=== PATIENT | male | born 1955 | race Caucasian/White ===

== ENCOUNTER 2016-04-26 13:20 | Inpatient (IN) | payer BC ==
--- NOTE | ~2016-04-26 | CN ---
Consultation Report [address] [place]. [address] NAME: RICK CARDONA : 57 STATUS : ADM IN PAT#: [id number] AGE: 60 ADM/REG DATE : 04/26/16 MR#: [id number] REPORT SERV DATE: 04/27/16 DICTATED BY: EDUAR SHANNON III DATE: 04/27/16 REPORT STATUS : Draft TRANSCRIBED BY: MODL DATE: 04/27/16 CONSULTATION DATE OF CONSULTATION: 04/27/2016 REASON FOR CONSULT: 1. Nausea and vomiting. 2. Small bowel obstruction. 3. Recommendation regarding surgical management. HISTORY OF PRESENT ILLNESS: I am asked to see this 60-year-old male, hospitalized for the above reasons. The patient complains of nausea, vomiting, and diffuse crampy abdominal pain. These symptoms began yesterday. These symptoms were associated with nausea and vomiting. The patient described diffuse nonlocalized abdominal pain. The patient presented to the emergency room initially at [facility] and was then transferred here. CT scan of the abdomen and pelvis there showed evidence for partial small bowel obstruction. The patient has a history of known metastatic prostate cancer with bone metastasis. He is currently undergoing chemotherapy. PAST MEDICAL HISTORY: 1. 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 2. Depression. 3. Cardiac arrhythmia. 4. Neuropathy of lower extremities. PAST SURGICAL HISTORY: Status post hemorrhoidectomy. ALLERGIES: NONE. MEDICATIONS: Adderall, aspirin, Lipitor, Casodex, Caltrate, Coreg, Klonopin, Colace, Prozac, oxycodone, prednisone, Seroquel, Flomax. The patient was initially diagnosed with prostate cancer in 2008. He apparently underwent surveillance before being found to have metastatic disease with imaging showing multiple metastasis including left ilium, right scapula, and spine. PHYSICAL EXAMINATION: Consultation Report [address] [place]. [address] NAME: RICK CARDONA : 57 STATUS : ADM IN PAT#: [id number] AGE: 60 ADM/REG DATE : 04/26/16 MR#: [id number] REPORT SERV DATE: 04/27/16 DICTATED BY: EDUAR SHANNON III DATE: 04/27/16 REPORT STATUS : Draft TRANSCRIBED BY: MODL DATE: 04/27/16 GENERAL: Male, in no acute distress. He is alert and oriented x3. VITAL SIGNS: Blood pressure 107/57, temperature 98.6, pulse 66. HEENT: Unremarkable. Cranial nerves 2 through 12 are normal. LUNGS: Clear. CARDIAC: Normal. ABDOMEN: Slightly distended, but soft and nontender. EXTREMITIES: Normal. LABORATORY DATA: CT scan of the abdomen and pelvis performed at [facility] reportedly showed a partial small bowel obstruction. This is not available for review at this time. The scan showed fluid distention in the majority of the small bowel without a focal transition point. There was noted to be some thickening of the distal ilium, 15 cm proximal to the ileocecal valve. There was noted to be fluid and stool in the colon. KUB here is normal. Electrolytes are unremarkable. Liver enzymes are normal. Current PSA from [facility] is 12. White blood cell count 3.4, platelet count 135,000. ASSESSMENT: 1. This is a 60-year-old male with nausea, vomiting, abdominal pain, probable partial small bowel obstruction. This seems to be resolving spontaneously. 2. History of prostate cancer with bone metastasis. 3. Cardiac arrhythmia. PLAN: The patient has been admitted and started on parenteral fluids and bowel rest. He seems to be improving already. I suspect this will be a self-limiting process with no surgical intervention being required. We will follow the patient with you. This plan has been explained to the patient. His questions have been answered. He understands and agrees to this as planned. RHJ/MODL Eduar Shannon III, M.D. / [id number] CC: Israel Ricketts MD
--- NOTE | ~2016-04-26 | HP ---
History And Physical [address] [place]. [address] NAME: RICK ACRDONA : 57 STATUS : ADM IN [facility]#: [id number] AGE: 60 ADM/REG DATE : 04/26/16 MR#: [id number] REPORT SERV DATE: 04/26/16 DICTATED BY: MIRLANDE BEAULIEU DATE: 04/26/16 REPORT STATUS : Draft TRANSCRIBED BY: MODOswald DATE: 04/26/16 DATE OF ADMISSION: 04/26/2016 CHIEF COMPLAINT: Abdominal pain, nausea, and vomiting. HISTORY OF PRESENT ILLNESS: This patient is a 60-year-old gentleman, who presented as a hospital transfer from [facility]. The patient presented via ambulance to [facility] Emergency Room with complaints of acute abdominal pain, nausea, and vomiting. The patient stated that the symptoms started approximately 8-10 hours prior to the admission. At the time of admission to the emergency room, the patient was rating pain 9/10. Did state that he was having periods of nausea and vomiting in every 20 minutes, unable to control. Did state that his abdomen was extremely tender to touch. This patient does present with a history of metastatic prostate cancer with bony metastasis, is under the care of Dr. Frantz Marin, [facility]. This patient denies shortness of breath, chest pain, and abdominal pain at this time. Does state that nausea is controlled. PAST MEDICAL HISTORY: 1. Metastatic prostate cancer with bony metastasis. 2. Depression. 3. Anxiety. 4. History of constipation. 5. Left bundle-branch block. 6. Neuropathy, bilateral lower extremities. 7. Brachytherapy 2011. PAST SURGICAL HISTORY: Hemorrhoidectomy. SOCIAL HISTORY: The patient is for over 37 years. One living son. No longer working. Continues to smoke. Occasional alcohol use. Denies illicit drug use. 1. Oncologist is Dr. Frantz Marin. 2. Primary care is Dr. Omari Christensen. 3. Palliative Care, Dr. Tahir Jain. 4. Radiation oncologist, Dr. Nate Medel. 5. Recruiting Manager is Dr. Csear Mojica. ALLERGIES: NO KNOWN DRUG ALLERGIES. HOME MEDICATIONS: 1. Adderall 10 mg one p.o. twice daily. 2. Aspirin 81 mg one p.o. daily. 3. Lipitor 40 mg one p.o. daily. 4. Casodex 50 mg one p.o. daily. 5. Caltrate 600 mg with vitamin D. History And Physical [address] [address] NAME: RICK CARDONA : 57 STATUS : ADM IN PAT#: [id number] AGE: 60 ADM/REG DATE : 04/26/16 MR#: [id number] REPORT SERV DATE: 04/26/16 DICTATED BY: MIRLANDE BEAULIEU DATE: 04/26/16 REPORT STATUS : Draft TRANSCRIBED BY: KINDRA DATE: 04/26/16 6. Coreg 3.125 p.o. twice daily. 7. Klonopin 3 mg at bedtime. 8. Colace 100 mg one p.o. twice daily. 9. Prozac 40 mg two tabs daily. 10.Oxycodone 7.5/325 one p.o. twice daily. 11.Prednisone 5 mg. 12.Seroquel at bedtime. 13. 200 mg p.o. at bedtime. 14.Flomax 0.4 mg one p.o. daily. PHYSICAL EXAMINATION: VITAL SIGNS: Temp 99.7, pulse is 99, respirations 18, blood pressure is 113/55. GENERAL: This patient is alert and oriented, in no acute distress. NECK: No JVD. LUNGS: Clear bilateral. No wheezes, rales, or rhonchi. CARDIOVASCULAR: Regular rate. No murmurs, rubs, or gallops. ABDOMEN: Soft, rounded. Bowel sounds are active. EXTREMITIES: No edema. No cyanosis. LABORATORY DATA: WBC is 7.3, hemoglobin 14.7, hematocrit 43.4, platelet count 203. Sodium is 139, potassium is 4.4, chloride is 98, CO2 is 31, calcium is 9.7, glucose is 145, BUN is 13, creatinine is 1.1, albumin is 4.3. Alkaline phosphatase is 101, ALT is 32, AST is 24, total bilirubin is 0.8, lipase is 4. IMAGING: CT of the abdomen and pelvis. IMPRESSION: Fluid distention of the majority of small bowel without focal transition point in the left lower quadrant. Distal ilium and focal area of irregular wall thickening, about 15 cm proximal to the ileocecal valve. Fluid and stool are seen throughout the length of the colon suggesting an incomplete or early small-bowel obstruction at this level. There is irregular wall thickening and could indicate adenocarcinoma of the small bowel, though a focal inflammatory process or sequel of prior insult could appear similar. ASSESSMENT AND PLAN: 1. Possible small-bowel obstruction. Imaging reviewed from [facility]. We will obtain a consult for Surgery to see. The patient will be placed n.p.o. with sips of clear liquids. 2. Nausea and vomiting due to possible small-bowel obstruction. The patient states that this is controlled at this time. We will provide antiemetics p.r.n. and IV fluids, and continue to monitor. 3. Above abdominal pain due to possible small-bowel obstruction. At this time, the patient does state the pain is controlled. We will add narcotics p.r.n. as needed for pain control. 4. Metastatic prostate cancer with known bone metastasis. The patient is followed by Dr. Frantz Marin. We will consult Oncology to follow during this hospital stay. 5. Chronic pain/neuropathy. The patient does present with a history of chronic pain and neuropathy. We will continue home medications. History And Physical [address] [address] NAME: RICK CARDONA : 57 STATUS : ADM IN [facility]#: [id number] AGE: 60 ADM/REG DATE : 04/26/16 MR#: [id number] REPORT SERV DATE: 04/26/16 DICTATED BY: MIRLANDE BEAULIEU DATE: 04/26/16 REPORT STATUS : Draft TRANSCRIBED BY: MODL DATE: 04/26/16 6. Code status. The patient is a full code. The patient will be followed by Dr. Israel Ricketts during his hospital stay. [facility] Mirlande Beaulieu NP / [id number] CC: MD Omari Pimentel, DO
--- NOTE | ~2016-04-26 | DS ---
Discharge Summary [address] [place]. [address] NAME: RICK CARDONA : 57 STATUS : DIS IN PAT#: [id number] AGE: 60 ADM/REG DATE : 04/26/16 MR#: [id number] REPORT SERV DATE: 04/30/16 DICTATED BY: DATE: REPORT STATUS : Draft TRANSCRIBED BY: MODL DATE: 04/29/16 ADMISSION DATE: 04/26/2016 DISCHARGE DATE: 04/29/2016 DISCHARGE DIAGNOSES: 1. Partial small-bowel obstruction, resolved. 2. Nausea with vomiting, resolved. 3. Abdominal pain, resolved. 4. Chronic pain/neuropathy. 5. Metastatic prostate cancer. 6. Depression. CONSULTATIONS: Dr. Eduar Shannon, Surgery, 04/27/2016. PERTINENT TEST AND PROCEDURES: 1. KUB, 04/26/2016, impression: Unremarkable gas pattern. No acute process. 2. KUB, 04/27/2016, impression: No significant bowel gas abnormalities. No evidence of free intraperitoneal air. No areas of significant mass effect. No evidence of acute abnormality within the abdomen. 3. Abdominal AP and upright imaging 04/28/2016, impression: Nonspecific bowel pattern which may represent mild ileus or enteritis. No evidence of significant obstruction currently. 4. Noncontrast CT of abdomen and pelvis, 04/26/2016 obtained at [facility] prior to admission, impression:. a. Fluid distention of majority of small bowel with focal transition point in the left lower quadrant distal ilium and a focal area of irregular wall thickening about 15 cm proximal to the ileocecal valve. Fluid/stool seen throughout the length of the colon suggesting incomplete or early small-bowel obstruction. Area of irregular wall thickening could indicate adenocarcinoma of small bowel versus focal inflammatory process or sequelae of prior insult. b. Small projection from the more proximal small bowel suggestive of a noninflamed Meckel's diverticulum. c. Diffuse sclerotic metastatic disease in the spine, pelvis, and proximal femur. d. Brachytherapy to the prostate consistent with history of prostate cancer. 5. Blood cultures x2 sites obtained, 04/26/2016, preliminary result, no growth at two days. 6. Urinalysis specimen obtained 04/26/2016, result negative. CHIEF COMPLAINT: Abdominal pain with nausea and vomiting. HOSPITAL COURSE: Refer to history and physical dated 04/26/2016 provided by Mone Beaulieu, nurse practitioner, for complete details pertaining to the patient's initial presentation upon admission and health history. Also, refer to consultation dated 04/27/[address] Eduar Shannon, Surgery. Discharge Summary [facility] [address] [place]. [address] NAME: RICK CARDONA : 57 STATUS : DIS IN PAT#: [id number] AGE: 60 ADM/REG DATE : 04/26/16 MR#: [id number] REPORT SERV DATE: 04/30/16 DICTATED BY: DATE: REPORT STATUS : Draft TRANSCRIBED BY: MODL DATE: 04/29/16 Briefly, the patient is a 60-year-old male, who presented to [facility] on 04/26/2016 with complaints of abdominal pain, nausea, and vomiting. Initial workup at [facility] included noncontrast CT of abdomen and pelvis which indicated possible small- bowel obstruction. The patient was transferred to [facility] for further evaluation and treatment. Dr. Eduar Shannon, Surgery, was consulted regarding recommendations for surgical management of possible small-bowel obstruction. Per Surgery, small-bowel obstruction appeared to be a self-limiting process with no surgical intervention being indicated. The patient responded well to bowel rest and IV fluids. 1. Partial small-bowel obstruction, resolved. Repeat KUB 04/28/2016, reported no evidence of obstruction with mild ileus versus enteritis pattern. Small-bowel obstruction, resolved spontaneously without indication for surgical intervention. GI signed off on the patient today and advised continuing soft diet and advancing as tolerated with followup in their office as needed. The patient has tolerated GI soft diet without difficulty and all symptoms to include intractable abdominal pain, nausea, and vomiting are completely resolved. 2. Nausea and vomiting. This was secondary to partial small bowel small bowel obstruction. Symptoms are now completely resolved. 3. Abdominal pain, acute. This was secondary to partial small-bowel obstruction. Abdominal pain has completely resolved, and the patient is successfully consuming oral intake without difficulty. 4. Chronic pain/neuropathy. This is secondary to metastatic prostate cancer. The patient will follow up with Dr. Jain, Pain Management, on 05/13/2016 at 10 o'clock for continued outpatient for management of pain medications. 5. Metastatic prostate cancer with multiple bone metastases. The patient is under the outpatient care of Dr. Frantz Marin at [facility]. The patient to follow up as scheduled. 6. Depression. The patient shows no clinical signs or symptoms of acute exacerbation of depression during this admission. Continue home medications. DISCHARGE CONDITION: At the time of discharge, the patient is hemodynamically stable. DISCHARGE DIET: GI soft diet to be advanced as tolerated at home. DISCHARGE MEDICATIONS: 1. Adderall 20 mg p.o. twice daily. 2. Casodex 50 mg tablet p.o. daily. 3. Coreg 3.125 mg tablet p.o. twice daily. 4. Fentanyl 25 mcg/hour transdermal patch, applied topically every 72 hours. 5. Prozac 40 mg tablet p.o. twice daily. 6. Habitrol 21 mg patch topically daily. The patient may obtain this over the counter if he wishes to pursue smoking cessation. 7. Seroquel 100 mg tablet, take 500 mg p.o. at bedtime. 8. Flomax 0.4 mg tablet p.o. daily. 9. Klonopin 1 mg tablet, take 3 mg p.o. at bedtime. Discharge Summary [address] [address] NAME: RICK CARDONA : 57 STATUS : DIS IN PAT#: [id number] AGE: 60 ADM/REG DATE : 04/26/16 MR#: [id number] REPORT SERV DATE: 04/30/16 DICTATED BY: DATE: REPORT STATUS : Draft TRANSCRIBED BY: KINDRA DATE: 04/29/16 10.Prednisone 5 mg tablet p.o. daily. 11.Lipitor 40 mg tablet p.o. daily. 12.Roxicodone 5 mg tablet, take 20 mg p.o. twice daily. Hold for sedation. 13.Aspirin 81 mg tablet p.o. daily. 14.Colace 100 mg tablet p.o. twice daily. 15.Caltrate 600+ D tab p.o. daily. 16.Console 1 dose p.o. daily. 17.Console 1 dose p.o. daily as needed in addition to scheduled dose. 18.Fbxm-ccf-inlaiqh probiotic one tablet p.o. three times daily. 19.[place]-3 of 1200 mg tablet p.o. twice daily. 20.Acetylcysteine 600 mg tablet p.o. twice daily. ADDENDUM HOME MEDICATION LIST #. Turmeric/bioperidine one tablet p.o. daily. #. Magnesium glycinate 200 mg tablet p.o. daily. #. Vitamin D 5000 units p.o. twice daily. #. Acetyl 2 Carnitine one tablet p.o. three times daily. #. Ubiquinol 20 mg tablet p.o. daily. #. MiraLAX 17 g p.o. daily. DISCHARGE INSTRUCTIONS #. Follow up with Dr. Frantz Marin at [facility], appointment date and time is pending. #. Follow up with Dr. Tahir Jain, Pain Management, 05/13/2016 at 10 a.m. hours. #. Follow up with Dr. Shannon, Surgery, p.r.n. The patient was instructed to continue GI soft diet and advance slowly as tolerated. The patient will be provided educational handout on small-bowel obstruction and diet management. The patient was instructed to return to the emergency department for any acute onset of fever of 100.4 or greater lasting more than one hour, acute onset of intractable abdominal pain, nausea, vomiting, diarrhea, or any other health concerns that are deviations from his baseline status at the time of this discharge. PRIMARY ONCOLOGIST Dr. Juan José Marin, [facility]. PRIMARY SOFTWARE ADMINISTRATOR Dr. Tahir Jain. [facility]/KINDRA MARILYNN Pace / [phone] Discharge Summary [address] [address] NAME: RICK CARDONA : 57 STATUS : DIS IN PAT#: [id number] AGE: 60 ADM/REG DATE : 04/26/16 MR#: [id number] REPORT SERV DATE: 04/30/16 DICTATED BY: DATE: REPORT STATUS : Draft TRANSCRIBED BY: MODL DATE: 04/29/16 / [id number] CC: MD Omari Rahman II,
[~2016-04-26 13:20] MED LIST: ASAB PO; COREG3 PO; HUMIR1 SC; ISORDTAB5 PO; KLONOPIN WAF1 MG PO; LIPITOR40 PO; SEROQUEL1C PO; [UNRECOGNIZED DRUG - OTHER]
[2016-04-26] MEDS ORDERED: PROZAC40 MG PO ×2 (14:28→18:37)
[2016-04-26] MEDS ORDERED: FLOMAX4 PO ×2 (14:29→18:37)
[2016-04-26] MEDS ORDERED: CASODEX 50 MG T50 MG PO ×2 (14:31→18:38)
[2016-04-26] MEDS ORDERED: P5 (14:31)
[2016-04-26] MEDS ORDERED: ADDER10 PO (14:34)
[2016-04-26] MEDS ORDERED: SEROQUEL200 MG PO (14:38)
[2016-04-26] MEDS ORDERED: ENDOCET1 TA1 PO (14:40)
[2016-04-26] MEDS ORDERED: DSS PO ×2 (14:43→18:40)
[2016-04-26] MEDS ORDERED: CALTRA600D (14:44)
[2016-04-26] MEDS ORDERED: ADDERALL20 MG PO (18:38)
[2016-04-26] MEDS ORDERED: LIPITOR40 PO (18:38)
[2016-04-26] MEDS ORDERED: P5 PO (18:38)
[2016-04-26] MEDS ORDERED: COREG3 PO (18:38)
[2016-04-26] MEDS ORDERED: SEROQUEL1C PO (18:39)
[2016-04-26] MEDS ORDERED: KLONO1 PO (18:39)
[2016-04-26] MEDS ORDERED: ASAB PO (18:40)
[2016-04-26] MEDS ORDERED: OXYCOD PO (18:40)
[2016-04-26] MEDS ORDERED: CALTRA600D PO (18:40)
[2016-04-26] MEDS ORDERED: DURA25 TOP (18:41)
[2016-04-26] MEDS ORDERED: KONSYL PO ×2 (18:41→18:42)
[2016-04-26] MEDS ORDERED: FISH OIL1200 MG PO (18:43)
[2016-04-26] MEDS ORDERED: PROBIOTIC PO (18:43)
[2016-04-26] MEDS ORDERED: NAC600 MG PO (18:43)
[2016-04-26] MEDS ORDERED: MAGNESIUM GLYCINATE PO (18:44)
[2016-04-26] MEDS ORDERED: [UNRECOGNIZED DRUG - OTHER] PO (18:44)
[2016-04-26] MEDS ORDERED: TURMERIC PO (18:44)
[2016-04-26] MEDS ORDERED: D 5000 PO (18:45)
[2016-04-26] MEDS ORDERED: ACETYL CARNITINE PO (18:46)
[2016-04-26] MEDS ORDERED: UBIQUINOL PO (18:48)
[2016-04-26 22:09] LABS: WBC (NOT ORDERED) (RFLEX) 0 (0-5)
[2016-04-26 22:15] LABS: ASCORBIC ACID (UR NOT ORDER) NEG (NEG); BILIRUBIN, URINE NEGATIVE (NEG); KETONE, URINE TRACE MG/DL (NEG); LEUKOCYTE ESTERASE(NOT OR NEG (NEG)
[2016-04-27 06:39] LABS: BASOPHILS 0.3 %; BASOPHILS ABSOLUTE 0.01 10/3/uL (0.0-0.16); EOSINOPHILS 2.4 %; EOSINOPHILS ABSOLUTE 0.08 10/3/uL (0.0-0.53); IMMATURE GRANULOCYTES 0.3 %; IMMATURE GRANULOCYTES ABSOLUTE 0.01 10/3/uL (0.0-0.11); LYMPHOCYTES 24.5 %; LYMPHOCYTES ABSOLUTE 0.83 10/3/uL (0.67-4.30); MEAN CORPUS HGB CONC 32.7 g/dL (32.0-36.0); MEAN CORPUSCULAR HEMOGLOB 29.3 pg (26.0-34.0); MEAN CORPUSCULAR VOLUME 89.6 fL (80-100); MEAN PLATELET VOLUME 9.7 fL (9.2-13.0); MONOCYTES 10.9 %; MONOCYTES ABSOLUTE 0.37 10/3/uL (0.21-1.20); NEUTROPHILS 61.6 %; NEUTROPHILS ABSOLUTE 2.09 10/3/uL (2.02-8.40); PLATELET COUNT 135 10/3/uL (150-400)
[2016-04-27 06:42] LABS: HEMATOCRIT 38.8 % (40.0-51.0); HEMOGLOBIN 12.7 g/dL (13.6-17.8); MANUAL DIFF NO %; RED CELL COUNT 4.33 10/6/uL (4.7-6.1); WHITE BLOOD CELLS 3.4 10/3/uL (4.5-10.5)
[2016-04-27 06:50] LABS: BUN (BLOOD UREA NITROGEN) 10 MG/DL (6-23); CALCIUM, SERUM 7.8 MG/DL (8.5-10.4); CHLORIDE, SERUM 106 MMOL/L (96-112); CO2 (CARBON DIOXIDE) 28 MMOL/L (24-34); CREATININE 0.88 MG/DL (0.70-1.30); GFR AFRICAN AMERICAN 109 ML/MIN (>=60); GFR NON AFRICAN AMERICAN 94 ML/MIN (>=60); GLUCOSE, SERUM 89 MG/DL (60-99); POTASSIUM, SERUM 3.8 MMOL/L (3.5-5.3); SODIUM, SERUM 143 MMOL/L (135-148)
[2016-04-28 04:59] LABS: BASOPHILS 0.2 %; BASOPHILS ABSOLUTE 0.01 10/3/uL (0.0-0.16); EOSINOPHILS 2.6 %; EOSINOPHILS ABSOLUTE 0.11 10/3/uL (0.0-0.53); HEMATOCRIT 36.9 % (40.0-51.0); HEMOGLOBIN 12.2 g/dL (13.6-17.8); IMMATURE GRANULOCYTES 0.2 %; IMMATURE GRANULOCYTES ABSOLUTE 0.01 10/3/uL (0.0-0.11); LYMPHOCYTES 25.8 %; LYMPHOCYTES ABSOLUTE 1.08 10/3/uL (0.67-4.30); MEAN CORPUS HGB CONC 33.1 g/dL (32.0-36.0); MEAN CORPUSCULAR HEMOGLOB 29.8 pg (26.0-34.0); MEAN CORPUSCULAR VOLUME 90.2 fL (80-100); MEAN PLATELET VOLUME 9.5 fL (9.2-13.0); MONOCYTES 9.8 %; MONOCYTES ABSOLUTE 0.41 10/3/uL (0.21-1.20); NEUTROPHILS 61.4 %; NEUTROPHILS ABSOLUTE 2.57 10/3/uL (2.02-8.40); PLATELET COUNT 143 10/3/uL (150-400); RBC DISTRIBUTION WIDTH 15.8 % (12.0-16.0); RED CELL COUNT 4.09 10/6/uL (4.7-6.1); WHITE BLOOD CELLS 4.2 10/3/uL (4.5-10.5)
[2016-04-28 05:09] LABS: MANUAL DIFF NO %
[2016-04-28 05:14] LABS: CALCIUM, SERUM 7.3 MG/DL (8.5-10.4); CHLORIDE, SERUM 109 MMOL/L (96-112); CO2 (CARBON DIOXIDE) 29 MMOL/L (24-34); CREATININE 0.86 MG/DL (0.70-1.30); GFR AFRICAN AMERICAN 110 ML/MIN (>=60); GFR NON AFRICAN AMERICAN 95 ML/MIN (>=60); GLUCOSE, SERUM 81 MG/DL (60-99); POTASSIUM, SERUM 3.9 MMOL/L (3.5-5.3); SODIUM, SERUM 144 MMOL/L (135-148)
[2016-04-28 05:16] LABS: BUN (BLOOD UREA NITROGEN) 5 MG/DL (6-23)
[2016-04-29 05:11] LABS: BASOPHILS 0.5 %; BASOPHILS ABSOLUTE 0.02 10/3/uL (0.0-0.16); EOSINOPHILS 2.5 %; HEMATOCRIT 36.7 % (40.0-51.0); IMMATURE GRANULOCYTES 0.7 %; IMMATURE GRANULOCYTES ABSOLUTE 0.03 10/3/uL (0.0-0.11); LYMPHOCYTES 23.1 %; LYMPHOCYTES ABSOLUTE 0.93 10/3/uL (0.67-4.30); MEAN CORPUS HGB CONC 32.7 g/dL (32.0-36.0); MEAN CORPUSCULAR HEMOGLOB 29.4 pg (26.0-34.0); MEAN PLATELET VOLUME 9.9 fL (9.2-13.0); MONOCYTES ABSOLUTE 0.32 10/3/uL (0.21-1.20); NEUTROPHILS 65.2 %; NEUTROPHILS ABSOLUTE 2.62 10/3/uL (2.02-8.40); PLATELET COUNT 151 10/3/uL (150-400); RBC DISTRIBUTION WIDTH 15.6 % (12.0-16.0); RED CELL COUNT 4.08 10/6/uL (4.7-6.1)
[2016-04-29 05:12] LABS: MANUAL DIFF NO %
[2016-04-29 05:28] LABS: BUN (BLOOD UREA NITROGEN) 4 MG/DL (6-23); CALCIUM, SERUM 8.1 MG/DL (8.5-10.4); CHLORIDE, SERUM 107 MMOL/L (96-112); CO2 (CARBON DIOXIDE) 28 MMOL/L (24-34); CREATININE 0.86 MG/DL (0.70-1.30); GFR AFRICAN AMERICAN 110 ML/MIN (>=60); GFR NON AFRICAN AMERICAN 95 ML/MIN (>=60); GLUCOSE, SERUM 87 MG/DL (60-99); POTASSIUM, SERUM 3.9 MMOL/L (3.5-5.3); SODIUM, SERUM 142 MMOL/L (135-148)
[2016-04-29] MEDS ORDERED: HABIT21 TOP (12:19)
[2016-04-29] MEDS ORDERED: MIRALAX POWDER1 PKT PO (12:24)
== END 2016-04-29 13:15 | disposition home or self-care (01) | DRG 389 ==
LOC: 4EA 13:20
PROVIDERS: Internal Medicine; Nurse Practitioner Family; Surgery
DX: K56.60 Unspecified intestinal obstruction (principal); C79.51 Secondary malignant neoplasm of bone; C61 Malignant neoplasm of prostate; F32.9 Major depressive disorder, single episode, unspecified; G62.9 Polyneuropathy, unspecified
CPT/HCPCS: 74000; 74020; 80048; 81001; 85025; 87040; A9270-GY

== ENCOUNTER 2016-06-26 19:10 | Emergency (ER) | payer BC ==
[~2016-06-26 19:10] MED LIST changes: +ACETYL CARNITINE PO; +ADDER10 PO; +ADDERALL20 MG PO; +CALTRA600D; +CALTRA600D PO; +CASODEX 50 MG T50 MG PO; +D 5000 PO; +DSS PO; +DURA25 TOP; +ENDOCET1 TA1 PO; +FISH OIL1200 MG PO; +FLOMAX4 PO; +HABIT21 TOP; +KLONO1 PO; +KONSYL PO; +MAGNESIUM GLYCINATE PO; +MIRALAX POWDER1 PKT PO; +NAC600 MG PO; +OXYCOD PO; +P5; +P5 PO; +PROBIOTIC PO; +PROZAC40 MG PO; +SEROQUEL200 MG PO; +TURMERIC PO; +UBIQUINOL PO; +[UNRECOGNIZED DRUG - OTHER] PO
== END 2016-06-26 21:27 | disposition home or self-care (01) ==
LOC: ER 19:10
DX: C61 Malignant neoplasm of prostate (principal); R10.2 Pelvic and perineal pain; F17.200 Nicotine dependence, unspecified, uncomplicated; F32.9 Major depressive disorder, single episode, unspecified; Z88.8 Allergy status to other drugs, medicaments and biological substances; Z79.899 Other long term (current) drug therapy; Z79.82 Long term (current) use of aspirin; Z79.52 Long term (current) use of systemic steroids
CPT/HCPCS: 93005; 96374; 96375; 99285; A9270-GY; J1170; J2405